=== PATIENT | female | born 1955 | race Caucasian/White ===

== ENCOUNTER 2018-02-12 09:23 | Emergency (ER) | END 2018-02-12 14:06 | disposition home or self-care (01) ==

== ENCOUNTER 2018-12-05 07:41 | Emergency (ER) | payer MEDICAID ==
[~2018-12-05] VITALS: Wt 89.1 kg
[~2018-12-05 07:41] MED LIST: ALBU8.5H8 INH; ASPI-903 PO; ATOR10TA65 PO; AZIT250T PO; BENZ-6 PO; CEPH-443 PO; CYCL10TA7 PO; DOCU-144 PO; HYDR-3980 PO; IBUP-1542 PO; LEVO112T57 PO; LOSA25TA12 PO; NALO4SPR NS; NAPR-985 PO; PRED20TA PO
[2018-12-05] MEDS ORDERED: ALBUTEROL 0.083% (NEB) 2.5 MG/3 ML AMP NEB STA (08:02)
[2018-12-05] MEDS ORDERED: IPRATROPIUM (NEB) 0.5 MG/2.5 ML AMP NEB STA (08:02)
[2018-12-05] MEDS ORDERED: predniSONE 20 MG TAB PO STA (08:02)
[2018-12-05 09:31] VITALS: BP 145/75; PULSE 75; RESP 18
== END 2018-12-05 09:32 | disposition home or self-care (01) ==
LOC: FTE 07:41
DX: J45.901 Unspecified asthma with (acute) exacerbation (principal); I10 Essential (primary) hypertension; E03.9 Hypothyroidism, unspecified; Z79.82 Long term (current) use of aspirin; Z87.891 Personal history of nicotine dependence
CPT/HCPCS: 71045; 93005; 94664; J7512; Z7502; Z7610